=== PATIENT | male | born 1985 | race Caucasian/White ===

== ENCOUNTER 2017-05-24 03:25 | Emergency (ER) | payer OTHER, MEDICAID ==
[~2017-05-24] VITALS: Ht 172.7 cm; Wt 93.2 kg
[2017-05-24 03:29] VITALS: BP 118/68
--- NOTE | 2017-05-24 03:39 | NUR ---
PT TAKEN TO BED 5
--- NOTE | 2017-05-24 03:40 | NUR ---
31 y/o m bib mother w/c/o SORETHROAT, cough, ABD PAIN,DIARRHEA,and decreased appatite SINCE WEDNESDAY. mother denies any fever, n/v. med hx, HTN, HIGH CHOLESTEROL,AND FATTY LIVER. ER made aware.
[2017-05-24] MEDS ORDERED: ESCI10TA PO (03:46)
[2017-05-24] MEDS ORDERED: PANT40EC PO (03:46)
[2017-05-24] MEDS ORDERED: LOPE1SOL12 PO (03:46)
[2017-05-24] MEDS ORDERED: AMLO10TA PO (03:46)
[2017-05-24] MEDS ORDERED: LOSA100T1 PO (03:46)
[2017-05-24] MEDS ORDERED: CETI-32 PO (03:46)
--- NOTE | 2017-05-24 03:48 | NUR ---
Dr. Jessica evaluating patient at bedside.
[2017-05-24] MEDS ORDERED: ONDANSETRON 4 MG/2 ML VIAL IVP ONE (03:55)
[2017-05-24] MEDS ORDERED: MORPHINE SULFATE 4 MG/ML SYR IVP ONE (03:55)
[2017-05-24] MEDS ORDERED: NACL 0.9% 3,000 ML IV ONE (03:55)
[2017-05-24 04:06] LABS: WHITE BLOOD COUNT (AUTO) 10.2 K/uL (4.8-10.8)
--- NOTE | 2017-05-24 04:09 | NUR ---
Aline hagen in [facility] - 05/24/17 at 0410 by HEAVEN PT TAKEN TO BED 5
--- NOTE | 2017-05-24 04:10 | NUR ---
last time pt ate was 05/23/17 at 19:00PM. last drink gatorade 03:30AM
--- NOTE | 2017-05-24 04:10 | NUR ---
PT TAKEN TO CT
[2017-05-24 04:13] LABS: HEMATOCRIT 38.6 % (36-52); MEAN CORPUSCULAR HEMOGLOBIN 29 pg (27-31); MEAN CORPUSCULAR HGB CONC 34 g/dL (33-37); MEAN CORPUSCULAR VOLUME 86 fL (80-94); PLATELET COUNT (AUTO) 188 K/uL (140-450); RED BLOOD CELL COUNT(AUTO) 4.49 MIL/uL (4.20-6.10); RED CELL DISTRIBUTION WIDTH 14.3 % (11.6-13.7)
[2017-05-24 04:16] LABS: ANION GAP 15.4 (8-16); CARBON DIOXIDE 24.9 mmol/L (21-32); POTASSIUM 3.3 mmol/L (3.5-5.1)
[2017-05-24 04:17] LABS: CREATININE 1.9 mg/dL (0.7-1.3)
--- NOTE | 2017-05-24 04:22 | NUR ---
PT RETURN FROM CT
[2017-05-24 04:25] LABS: EOSINOPHILS % (MANUAL) 1 % (0-4); LYMPHOCYTES % (MANUAL) 20 % (20-46); MONOCYTES % (MANUAL) 7 % (5-12); PROTHROMBIN TIME 11.4 secs (10.8-13.4)
[2017-05-24 04:26] LABS: ALBUMIN 2.8 g/dL (3.4-5.0)
[2017-05-24 04:29] LABS: APPEARANCE,URINE CLEAR (CLEAR); BILIRUBIN,URINE 1+ (NEGATIVE); BLOOD, URINE NEGATIVE (NEGATIVE); COLOR,URINE YELLOW (YELLOW); LEUKOCYTE ESTERASE ,URINE NEGATIVE (NEGATIVE); NITRITE, URINE NEGATIVE (NEGATIVE); PH,URINE 5.5 (5.0-9.0); UGLUCOSE NEGATIVE (NEGATIVE)
[2017-05-24 04:31] LABS: RBC,URINE 0-5 (RARE) /HPF (0-5); WBC,URINE 0-5 (RARE) /HPF (0-5)
--- NOTE | 2017-05-24 04:40 | NUR ---
PT RESTING IN BED ON MONITOR, VSS. FAMILY AT BEDSIDE.
--- NOTE | 2017-05-24 05:41 | NUR ---
PT ASLEEP, ON MONITOR, VSS. FAMILY REMAINS AT BEDSIDE.
--- NOTE | 2017-05-24 06:03 | NUR ---
Patient discharged with v/s stable. Written and verbal after care instructions given and explained. Patient alert, oriented and verbalized understanding of instructions. Ambulatory with steady gait. All questions addressed prior to discharge. ID band removed. Patient advised to follow up with PMD OR RETURN TO ER IF CONDITION WORSENS. Rx of NAPROSYN, AUGMENTIN AND COLACE given. Patient educated on indication of medication including possible reaction and side effects. Opportunity to ask questions provided and answered.
[2017-05-24 06:06] VITALS: BP 112/62
== END 2017-05-24 06:03 | disposition home or self-care (01) ==
LOC: MED 03:25
DX: R10.9 Unspecified abdominal pain (principal); R19.7 Diarrhea, unspecified; J02.9 Acute pharyngitis, unspecified; Z79.899 Other long term (current) drug therapy
CPT/HCPCS: 36415; 74176; 80053; 81001; 83605; 83690; 85025; 85610; 87040; 87086; 96361; 96374; 96375; 99285; J2270; J2405; J7030

== ENCOUNTER 2019-04-22 23:13 | Emergency (ER) | payer OTHER, MEDICAID ==
[~2019-04-22] VITALS: Ht 165.1 cm; Wt 104.3 kg
[~2019-04-22 23:13] MED LIST: AMLO10TA PO; CETI-32 PO; ESCI10TA PO; LOPE1SOL12 PO; LOSA100T1 PO; PANT40EC PO
[2019-04-22 23:20] VITALS: BP 130/81
--- NOTE | 2019-04-22 23:20 | NUR ---
TO BED # 03 AMBULATORY
--- NOTE | 2019-04-22 23:25 | NUR ---
ASSUMED TEMPORARY CARE OF PT AT THIS TIME FOR PRIMARY RN ON BREAK. C/O RIGHT POSTERIOR THIGH ABSCESS W/ PURULENT DRAINAGE NOTED X 3 DAYS. AAOX4 WITH EVEN AND STEADY GAIT; PATIENT STATES PAIN OF 10/10; VSS; PATIENT POSITIONED FOR COMFORT; HOB ELEVATED; BEDRAILS UP X2; BED DOWN. ER MD MADE AWARE OF PT STATUS. WILL CONTINUE TO MONITOR.
[2019-04-22] MEDS ORDERED: cefTRIAXone 1,000 MG in LIDOCAINE MPF 1% - 5 mL VIAL 2.1 ML IM ONE (23:35)
[2019-04-23 00:26] VITALS: BP 130/81
--- NOTE | 2019-04-23 00:26 | NUR ---
Patient discharged with v/s stable. Written and verbal after care instructions given and explained. Patient alert, oriented and verbalized understanding of instructions. Ambulatory with steady gait. All questions addressed prior to discharge. ID band removed. Patient advised to follow up with PMD. Rx of Keflex and Bactrim given. Patient educated on indication of medication including possible reaction and side effects. Opportunity to ask questions provided and answered.
== END 2019-04-23 00:26 | disposition home or self-care (01) ==
LOC: MED 23:13
DX: L02.31 Cutaneous abscess of buttock (principal); K21.9 Gastro-esophageal reflux disease without esophagitis; I10 Essential (primary) hypertension; Z79.899 Other long term (current) drug therapy
CPT/HCPCS: 96372; 99283; J0696; J2001

== ENCOUNTER 2019-04-25 23:38 | Emergency (ER) | payer OTHER, MEDICAID ==
[~2019-04-25] VITALS: Ht 165.1 cm; Wt 59.9 kg
[2019-04-25 23:55] VITALS: BP 134/74
--- NOTE | 2019-04-25 23:55 | NUR ---
PATIENT AMBULATED TO ER BED 7.
[2019-04-26] MEDS ORDERED: VANCOMYCIN 1,000 MG in DEXTROSE 5% 250 ML IV ONE (00:05)
--- NOTE | 2019-04-26 00:06 | NUR ---
33 YO MALES COMES TO ED FOR C/O R THIGH ABSCESS. PT AND MOTHER DENY FEVER/CHILLS. MOTHER STATES PT RECENTLY IN ED THIS PAST WEDNESDAY AND D/C'D WITH RX. PT C/O 10/10 PAIN. SKIN WARM DRY, REDDENED TO POSTERIOR THIGH AREA; SCANT DRAINAGE NOTED, SEROSANG. DISTAL PULSES INTACT. MIRIANRNEY LOCKED IN LOWEST POSITION. ERMD @ BEDSIDE. HX:GERD, HTN, BIPOLAR ALLERGIES:DENIES
[2019-04-26] MEDS ORDERED: VANCOMYCIN 1,000 MG VIAL ONE (00:20)
[2019-04-26 02:11] VITALS: BP 134/74
--- NOTE | 2019-04-26 02:11 | NUR ---
Patient discharged with v/s stable. Written and verbal after care instructions given and explained by Dr. Patton. Patient alert, oriented and verbalized understanding of instructions. Ambulatory with steady gait. All questions addressed prior to discharge. ID band removed. Patient advised to follow up with PMD. Rx of bactrim, keflex given. Patient educated on indication of medication including possible reaction and side effects by Dr. Patton. Opportunity to ask questions provided and answered by Dr. Patton.
== END 2019-04-26 02:11 | disposition home or self-care (01) ==
LOC: MED 23:38
DX: L03.115 Cellulitis of right lower limb (principal); K21.9 Gastro-esophageal reflux disease without esophagitis; I10 Essential (primary) hypertension; Z79.899 Other long term (current) drug therapy
CPT/HCPCS: 36415; 87040; 96365; 99283; J3370